=== PATIENT | male | born 1965 ===

== ENCOUNTER 2018-01-09 11:18 | Emergency (ER) | payer BC ==
[2018-01-09 11:21] VITALS: BMI 28.6
[2018-01-09 11:27] VITALS: RESP 18
--- NOTE | 2018-01-09 11:53 | ED PDOC ---
Arrival/HPI - General Chief Complaint: Back Pain Time Seen by Provider: 01/09/18 11:46 Historian: Patient - History of Present Illness Narrative History of Present Illness (Text): 01/09/18 11:52 52 year old male, with past medical history of questionable hyperlipidemia, and GERD, presents to the emergency department complaining of intermittent right lower back pain since 2 weeks. Patient states worsening discomfort since last night exacerbated with movement. Patient states radiation of pain to right groin area, unimproved symptoms after taking ibuprofen. Patient presents to the Emergency department for medical evaluation. Patient denies any fever, chills, nausea, vomiting, diarrhea, dysuria, urinary output changes, chest pain, shortness of breath or any other complaints. Patient denies any family history of nephrolithiasis. Time/Duration: > week (2 weeks) Symptom Onset: Gradual Symptom Course: Intermittent, Worsening Quality: Aching Activities at Onset: Light Context: Home Past Medical History - Provider Review Nursing Documentation Reviewed: Yes - Infectious Disease Hx of Infectious Diseases: None - Tetanus Immunization Tetanus Immunization: Unknown - Cardiac Hx Pacemaker: No - Neurological Hx Paralysis: No - Hematological/Oncological Hx Blood Transfusions: No Hx Blood Transfusion Reaction: No - Musculoskeletal/Rheumatological Hx Musculoskeletal Disorders: No - Gastrointestinal Hx Gastroesophageal Reflux: Yes - Psychiatric Hx Emotional Abuse: No Hx Physical Abuse: No Hx Substance Use: No - Surgical History Other/Comment: lasik surgery - Anesthesia Hx Anesthesia Reactions: No Hx Malignant Hyperthermia: No - Suicidal Assessment Feels Threatened In Home Enviroment: No Family/Social History - Physician Review Nursing Documentation Reviewed: Yes Family/Social History: No Known Family HX Smoking Status: Never Smoked Hx Alcohol Use: Yes (OCCASIONAL) Hx Substance Use: No Hx Substance Use Treatment: No Allergies/Home Meds Allergies/Adverse Reactions: Allergies aspirin Allergy (Intermediate, Verified 08/22/15 10:03) HIVES, ITCHING Review of Systems - Physician Review All systems were reviewed & negative as marked: Yes - Review of Systems Constitutional: absent: Fevers Respiratory: absent: SOB Cardiovascular: absent: Chest Pain Gastrointestinal: Abdominal Pain (lower right quadrant ). absent: Diarrhea, Nausea, Vomiting Genitourinary Male: absent: Dysuria, Urinary Output Changes Musculoskeletal: Back Pain (lower right back ) Physical Exam - Physical Exam Narrative Physical Exam (Text): 01/09/18 12:13 Gen: VS reviewed, alert, well developed, well nourished, nontoxic, mild distress (every patient is mild distress unless otherwise stated) ENT: normal pharynx Eye: EOMI, PERRL Neck: no JVD, supple, no adenopathy CV: regular rate, regular rhythm, no rubs,no murmur, no gallops, S1, S2, pulses equal and strong Pulm: no distress, clear to auscultation, no wheeze, no rhonchi, breath sounds equal, no rales Abd: soft, nontender, no guarding, no rebound, no rigidity, normal bowel sounds Back: tenderness in the right lower lumbar area at L3 L4 aspect Ext: no edema Skin: good color, no rash, no cyanosis Psych: responds appropriately to questions, normal affect Neuro: oriented x3, CN2-12 intact grossly, motor intact, sensation intact Vital Signs Reviewed: Yes Vital Signs Temp Pulse Resp BP Pulse Ox 01/09/18 15:32 98.6 F 72 18 122/69 99 01/09/18 13:30 72 18 105/69 99 01/09/18 11:26 98.0 F 60 18 125/80 97 Temperature: Afebrile Blood Pressure: Normal Pulse: Regular Respiratory Rate: Normal Appearance: Positive for: Well-Appearing, Non-Toxic, Comfortable Pain Distress: None Mental Status: Positive for: Alert and Oriented X 3 Medical Decision Making ED Course and Treatment: 01/09/18 11:47 Impression: 52 year old male presents to emergency department with right lower back pain. Differential Diagnosis included but are not limited to: nephrolithiasis vs. pinched nerve Plan: --CT of abdomen --Labs --Toradol --Tylenol --Urinalysis -- Reassess and disposition Prior Visits: Notes and results from previous visits were reviewed. Progress Notes: 01/09/18 12:43 patient seen for right low back pain, appears to have a pattern suggestive of MSK origin of pain with radiation to right groin area however it is clearly exacerbated with body position. will get CT to rule out stone. 01/09/18 13:59 Upon reassessment, patient states significant improvement to symptoms and is feeling much better. Patient is resting comfortably with no new complaints. - Lab Interpretations Lab Results: 01/09/18 12:10 01/09/18 12:10 Lab Results 01/09/18 12:10: Urine Color Yellow, Urine Appearance Clear, Urine pH 6.0, Ur Specific Rebecca 1.025, Urine Protein Negative, Urine Glucose (UA) Negative, Urine Ketones Negative, Urine Blood Trace-intact H, Urine Nitrate Negative, Urine Bilirubin Negative, Urine Urobilinogen 0.2, Ur Leukocyte Esterase Negative , Urine RBC 2 - 5, Urine WBC 1 - 3, Ur Epithelial Cells 0 - 2, Urine Bacteria Mod 01/09/18 12:10: Sodium 141, Potassium 4.1, Chloride 107, Carbon Dioxide 23, Anion Gap 15, BUN 15, Creatinine 0.6 L, Est GFR ( Amer) > 60, Est GFR ( Non-Af Amer) > 60, Random Glucose 93, Calcium 8.9, Total Bilirubin 0.5, AST 25, ALT 31, Alkaline Phosphatase 79, Total Protein 6.8, Albumin 4.0, Globulin 2.8, Albumin/Globulin Ratio 1.4 01/09/18 12:10: WBC 5.1, RBC 4.50, Hgb 13.7 L, Hct 39.4 L, MCV 87.6, MCH 30.4, MCHC 34.8, RDW 13.0, Plt Count 202, MPV 9.6, Gran % 52.8, Lymph % (Auto) 34.4, Cole % (Auto) 6.1 H, Eos % (Auto) 6.1 H, Baso % (Auto) 0.6, Gran # 2.70, Lymph # (Auto) 1.8, Cole # (Auto) 0.3, Eos # (Auto) 0.3, Baso # (Auto) 0.03 - RAD Interpretation Narrative RAD Interpretations (Text): 01/09/18 14:58 CT of Abdomen reviewed by radiologist, shows: Hepatomegaly however of findings could represent a Sebastian's lobe. The no evidence of nephrolithiasis or hydronephrosis. Few tiny appendicoliths are present however no definitive evidence of acute appendicitis. Mild urinary bladder wall thickening likely due to incomplete distention and muscular hypertrophy. Correlation with urinalysis recommended. Radiology Orders: 01/09/18 11:47 ABDOMEN & PELVIS [ABD & PELVIS W/O PO OR IV CONT] [CT] Stat Calendering Machine Operator: Radiologist - Medication Orders Current Medication Orders: Discontinued Medications Acetaminophen (Tylenol 325mg Tab) 975 mg PO STAT STA Stop: 01/09/18 11:49 Last Admin: 01/09/18 12:07 Dose: 975 mg MAR Pain/Vitals Document 01/09/18 12:07 SZA (Rec: 01/09/18 12:07 SZA [id number]) Pain Reassessment Is This A Pain ReAssessment? No Sleep Is patient sleeping during reassessment? No Presence of Pain Presence of Pain Yes Ketorolac Tromethamine (Toradol) 30 mg IVP STAT STA Stop: 01/09/18 11:49 Last Admin: 01/09/18 12:06 Dose: 30 mg MAR Pain Assessment Document 01/09/18 12:06 SZA (Rec: 01/09/18 12:06 SZA [id number]) Pain Reassessment Is this a pain reassessment? No Sleep Is patient sleeping during reassessment? No Presence of Pain Presence of Pain Yes IVP Administration Document 01/09/18 12:06 SZA (Rec: 01/09/18 12:06 SZA [id number]) Charges for Administration # of IVP Administrations 1 Re-Assess: MAR Pain Assessment Document 01/09/18 13:06 SZA (Rec: 01/09/18 14:53 [id number]) Pain Reassessment Is this a pain reassessment? Yes Sleep Is patient sleeping during reassessment? No Presence of Pain Presence of Pain Yes Pain Scale Used Pain Scale Used Numeric Description Description Intermittent Intensity of Pain at present 4 - Scribe Statement The provider has reviewed the documentation as recorded by the May Higgins training under [facility] All medical record entries made by the May were at my direction and personally dictated by me. I have reviewed the chart and agree that the record accurately reflects my personal performance of the history, physical exam, medical decision making, and the department course for this patient. I have also personally directed, reviewed, and agree with the discharge instructions and disposition. Disposition/Present on Arrival - Present on Arrival Any Indicators Present on Arrival: No History of DVT/PE: No History of Uncontrolled Diabetes: No Urinary Catheter: No History of Decub. Ulcer: No History Surgical Site Infection Following: None - Disposition Have Diagnosis and Disposition been Completed?: Yes Diagnosis: Radicular low back pain Disposition: HOME/ ROUTINE Disposition Time: 19:10 Condition: GOOD Discharge Instructions (ExitCare): Radiculopathy (DC) Print Language: BELGIAN Additional Instructions: return for any new or worsening symptoms especially escalating pain, numbness, inability to move bowels or incontinence. follow up with your primary are doctor for further management. you may need further imaging such as an MRI if the pain is persistent or intolerable. Prescriptions: Ibuprofen [Motrin Tab] 600 mg PO QID #30 tab Referrals: Nikhil Uribe, DO [Primary Care Provider] - Follow up with primary Forms: [facility] ([place]), WORK NOTE
[2018-01-09 12:32] LABS: BASO # 0.03 K/mm3 (0.0-2.0); BASO % 0.6 % (0.0-3.0); EOS # 0.3 (0.0-0.7); EOS % 6.1 % (1.5-5.0); GRAN # 2.7 (1.4-6.5); GRAN % 52.8 % (50.0-68.0); HEMOGLOBIN 13.7 g/dL (14.0-18.0); LYMPH # 1.8 (1.2-3.4); LYMPH % 34.4 % (22.0-35.0); MEAN CELL VOLUME 87.6 fl (80.0-105.0); MEAN CORPUSCULAR HEMOGLOBIN 30.4 pg (25.0-35.0); MEAN CORPUSCULAR HGB CONC 34.8 g/dl (31.0-37.0); MEAN PLATELET VOLUME 9.6 fl (7.0-11.0); MONO # 0.3 (0.1-0.6); MONO % 6.1 % (1.0-6.0); RBC 4.5 10^6/uL (3.5-6.1); URINE BILIRUBIN NEGATIVE (NEGATIVE); URINE BLOOD TRACE-INTACT (NEGATIVE); URINE GLUCOSE (UA) NEGATIVE (NEGATIVE); URINE LEUKOCYTE ESTERASE NEGATIVE Leu/uL (NEGATIVE); URINE PROTEIN NEGATIVE mg/dL (<30 mg/dL); URINE UROBILINOGEN 0.2 E.U./dL (<1 E.U./dL); WHITE BLOOD COUNT 5.1 10^3/ul (4.5-11.0)
[2018-01-09 12:35] LABS: URINE APPEARANCE CLEAR (CLEAR); URINE COLOR YELLOW (YELLOW)
[2018-01-09 12:46] LABS: ALB/GLOB RATIO 1.4 (1.1-1.8); ALT/SGPT 31 U/L (7-56); AST/SGOT 25 U/L (17-59); BLOOD UREA NITROGEN 15 mg/dL (7-21); CALCIUM 8.9 mg/dL (8.4-10.5); GFR AFRICAN-AMERICAN > 60; GFR NON-AFRICAN AMERICAN > 60
[2018-01-09 12:51] LABS: URINE BACTERIA MOD (NEG); URINE EPITHELIAL CELLS 0 - 2 /hpf (0-5)
[2018-01-09 14:52] VITALS: PULSE 72; O2SAT 99
--- NOTE | 2018-01-09 14:54 | CT ---
PROCEDURE: CT abdomen pelvis dated 01/09/2018 HISTORY: Flank pain. COMPARISON: Comparison made with prior CT scan abdomen pelvis 08/07/2015 TECHNIQUE: Contiguous helical/transaxial images of the abdomen and pelvis performed without contrast. . Coronal and Sagittal reformats generated. This CT exam was performed using one or more of the following dose reduction techniques: Automated exposure control, adjustment of the mA and/or kV according to patient size, and/or use of iterative reconstruction technique. Radiation dose: Total exam DLP = 598.87 mGy-cm. FINDINGS: LOWER THORAX: Unremarkable. LIVER: Liver is enlarged measuring nearly 22 cm in CC dimension however this could be due to a Sebastian's lobe. No obvious hepatic mass or collection seen on this noncontrast study. GALLBLADDER AND BILE DUCTS: Gallbladder is physiologically distended. No evidence of intraluminal gallbladder calculi. PANCREAS: Pancreas is unremarkable without masses collections or calcifications. SPLEEN: Spleen exhibits normal size and attenuation pattern without masses collections or calcifications. ADRENALS: Unremarkable. KIDNEYS AND URETERS: Kidneys demonstrate relatively symmetric size. No evidence of nephrolithiasis or hydronephrosis. No obvious renal masses or collections. BLADDER: Urinary bladder is incompletely distended which presumably accounts for slight thick-walled appearance. Muscular hypertrophy may contribute. Correlation with urinalysis recommended. Prostate gland measures approximately 4.41 cm in transverse dimension. REPRODUCTIVE: Prostate gland measures approximately 4.2 cm and appears slightly heterogeneous. Findings likely due to mild BPH however correlation with PSA recommended. APPENDIX: There are several small elliptical opaque densities within the lumen of the proximal appendix that may represent tiny appendicoliths. Most of the appendix exhibits normal caliber with the exception of a small knuckle that appears to loop back on itself none given the appearance of the dilatation. BOWEL: Evaluation of the bowel is limited due to the lack of oral contrast material. Stomach is collapsed. Visualized loops of small bowel exhibit normal contour and caliber. No evidence of acute mechanical small bowel obstruction. PERITONEUM: Unremarkable. No fluid collection. No free air. Small fat containing umbilical hernia. LYMPH NODES: Unremarkable. No enlarged lymph nodes. VASCULATURE: Unremarkable. No aortic aneurysm. BONES: No fracture or destructive lesion. OTHER FINDINGS: None. IMPRESSION: Hepatomegaly however of findings could represent a Sebastian's lobe. The no evidence of nephrolithiasis or hydronephrosis. Few tiny appendicoliths are present however no definitive evidence of acute appendicitis. Mild urinary bladder wall thickening likely due to incomplete distention and muscular hypertrophy. Correlation with urinalysis recommended.
[2018-01-09 15:36] VITALS: BP 122/69; TEMP 98.6
== END 2018-01-09 15:37 | disposition home or self-care (01) ==
LOC: ED 11:18
DX: M54.5 Low back pain (principal)
CPT/HCPCS: 74176; 80053; 81001; 85025; 96374; 99283; J1885